=== PATIENT | male | born 1965 | race Caucasian/White ===

== ENCOUNTER 2016-03-20 11:10 | Observation (INO) | payer OTHER ==
[~2016-03-20] VITALS: Ht 170.2 cm; Wt 68.2 kg
[~2016-03-20 11:10] MED LIST: ASPI-130 PO; BUPR150CR PO; LEVEMIR SQ; LIPI20TA PO; LISI-360 PO; METF500 PO; NOVOLOGP2 SQ; NOVORP2 SQ; SERO100T PO
[2016-03-20 11:12] VITALS: BP 139/91; PULSE 95; RESP 17; TEMP 98.1; O2SAT 98
[2016-03-20 12:06] LABS: AUTOMATED NEUTROPHIL # 2.9 TH/MM3 (1.8-7.7); BASOPHIL % 0.8 % (0.0-2.0); EOSINOPHIL # 0.1 TH/MM3 (0-0.4); HEMATOCRIT 36.1 % (39.0-51.0); HEMO FLAGS DIFF FINAL; LYMPH % 38.4 % (9.0-44.0); LYMPHOCYTE # 2.1 TH/MM3 (1.0-4.8); MEAN CELL VOLUME 88.5 FL (80.0-100.0); MEAN CORPUSCULAR HEMOGLOBIN 31.1 PG (27.0-34.0); MEAN CORPUSCULAR HGB CONC 35.1 % (32.0-36.0); MONO % 7.2 % (0.0-8.0); NEUT % 52.6 % (16.0-70.0); PLATELET COUNT 340 TH/MM3 (150-450); RED BLOOD COUNT 4.08 MIL/MM3 (4.50-5.90); RED CELL DISTRIBUTION WIDTH 13.5 % (11.6-17.2); WHITE BLOOD COUNT 5.5 TH/MM3 (4.0-11.0)
--- NOTE | 2016-03-20 12:08 | PD ---
HPI Chief Complaint: Chest Pain Time Seen by Provider: 12:08 Travel History International Travel<30 days: No Contact w/Intl Traveler<30days: No Traveled to known affect area: No History of Present Illness HPI 51-year-old male with history of CAD, CABG, type I DM, HLD, HTN, cocaine abuse, EtOH abuse presents to the ED for evaluation of 7/10 left-sided chest tightness , radiating down the left arm. Onset this morning after waking up. Patient endorses accompanying shortness of breath. He denies diaphoresis, cough, abdominal pain, nausea, vomiting, swelling of the legs. Patient states he took a dose of nitroglycerin which did help to increase his symptoms. He endorses compliance with his insulin but states that his sugars have been "high." States that he "did a line of coke" a few days ago. Also complains of suicidal ideation. He does not have a plan. He is requesting medication. Patient does not currently have a er nurse, followed by Dr. Cardenas [facility] Past Medical History Hx Anticoagulant Therapy: Yes Arthritis: No Asthma: No Autoimmune Disease: No Blood Disorders: No Bipolar Disorder: Yes Anxiety: Yes Depression: Yes Heart Rhythm Problems: No Cancer: No Cardiac Catheterization: Yes Cardiovascular Problems: Yes (Reported hx of HTN, CAD) High Cholesterol: Yes Chemotherapy: Yes Chest Pain: No Congestive Heart Failure: No Cerebrovascular Accident: No Diabetes: Yes Diminished Hearing: No Endocrine: Yes Gastrointestinal Disorders: Yes GERD: Yes Glaucoma: No Genitourinary: No Headaches: No Hepatitis: No Hiatal Hernia: No Hypertension: Yes Immune Disorder: No Implanted Vascular Access Dvce: No Kidney Stones: No Musculoskeletal: No Neurologic: No Psychiatric: Yes (Hx of treatment for depression) Reproductive: No Respiratory: Yes Migraines: No Myocardial Infarction: Yes (2005) Radiation Therapy: No Renal Failure: No Seizures: Yes (seizure 01/10/16, says in coma 11 days) Sickle Cell Disease: No Sleep Apnea: No Thyroid Disease: No Ulcer: No PNEUMOCCOCAL Vaccine (Year): 1 Past Surgical History Abdominal Surgery: No AICD: No Appendectomy: No Arteriovenous Shunt: No Cardiac Surgery: Yes (corobnary by-pass) Cholecystectomy: No Coronary Artery Bypass Graft: Yes Coronary Stent: Yes (X2) Ear Surgery: No Endocrine Surgery: No Eye Surgery: No Genitourinary Surgery: No Gynecologic Surgery: No Insulin Pump: No Joint Replacement: Yes (metal in right wrist) Neurologic Surgery: No Oral Surgery: No Pacemaker: No Thoracic Surgery: No Other Surgery: Yes (CABG,ORTHO RT WRIST, STENT,) Social History Alcohol Use: Yes (socially) Tobacco Use: Yes (0.5 ppd) Substance Use: Yes (cocaine - 2 x week) Allergies-Medications (Allergen,Severity, Reaction): Coded Allergies: *MDRO Multi-Drug Resistant Organism (Verified Adverse Reaction, Unknown, ) MRSA (hand wound) 2010; MRSA PCR Screen POSITIVE 02/11/16 Reported Meds & Prescriptions Reported Meds & Active Scripts Active Lipitor (Atorvastatin Calcium) 20 Mg Tab 20 Mg PO DAILY 15 Days Seroquel (Quetiapine Fumarate) 100 Mg Tab 150 Mg PO QID 15 Days Wellbutrin SR 12 HR (Bupropion HCl) 150 Mg Tab 150 Mg PO DAILY 15 Days Glucophage (Metformin HCl) 500 Mg Tab 250 Mg PO BIDPC 30 Days Novolog Inj (Insulin Aspart) 1,000 Unit/10 Ml Vial 1-9 Units SQ ACHS 30 Days Max dose at bedtime:( )units; sugars less than 70,(0)units; sugars 150-199,(1) unit; sugars 200-249,(3) units; sugars 250-299,(5) units; sugars 300-349,(7) units; sugars greater than 349,(9) units Novolin R Inj (Insulin Human Regular) 1,000 Unit/10 Ml Vial 3 Units SQ TIDAC 30 Days Levemir Inj (Insulin Detemir) 1,000 unit/ 10 ML Vial 35 Units SQ HS 30 Days Lisinopril 10 mg (Lisinopril) 10 Mg Tab 1 Tab PO DAILY 30 Days Reported Aspirin EC Low Dose (Aspirin) 81 Mg Tab 81 Mg PO DAILY Review of Systems Except as stated in HPI: all other systems reviewed are Neg Physical Exam Narrative GENERAL: Well-nourished, well-developed white male in no acute distress. SKIN: Warm and dry. HEAD: Normocephalic. EYES: No scleral icterus. No injection or drainage. NECK: Supple, trachea midline. No JVD or lymphadenopathy. CARDIOVASCULAR: Regular rate and rhythm without murmurs, gallops, or rubs. 2+ DP and radial pulses bilaterally. RESPIRATORY: Breath sounds clear and equal bilaterally. No accessory muscle use. GASTROINTESTINAL: Abdomen soft, non-tender, nondistended. Active bowel sounds. MUSCULOSKELETAL: No cyanosis, or edema. BACK: Nontender without obvious deformity. No CVA tenderness. Data Data Last Documented VS Vital Signs Date Time Temp Pulse Resp B/P Pulse Ox O2 Delivery O2 Flow Rate FiO2 03/20/16 11:12 98.1 95 17 139/91 98 Orders Electrocardiogram (03/20/16 11:22) Complete Blood Count With Diff (03/20/16 11:22) Basic Metabolic Panel (Bmp) (03/20/16 11:22) Ckmb (Isoenzyme) Profile (03/20/16 11:22) Troponin I (03/20/16 11:22) Chest, Single Ap (03/20/16 11:22) Basic Metabolic Panel (Bmp) (03/20/16 12:17) Ckmb (Isoenzyme) Profile (03/20/16 12:17) Magnesium (Mg) (03/20/16 12:17) Prothrombin Time / Inr (Pt) (03/20/16 12:17) Act Partial Throm Time (Ptt) (03/20/16 12:17) Troponin I (03/20/16 12:17) Iv Access Insert/Monitor (03/20/16 12:17) Aspirin Chew (Aspirin Chew) (03/20/16 12:30) Sodium Chloride 0.9% Flush (Ns Flush) (03/20/16 12:30) Nitroglycerin Sl (Nitrostat Sl) (03/20/16 12:30) Sodium Chlorid 0.9% 500 Ml Inj (Ns 500 M (03/20/16 12:30) Blood Glucose (03/20/16 12:17) Drug Screen, Random Urine (03/20/16 12:17) Psych Screen (03/20/16 12:17) Consult Psychiatry (03/20/16 ) Admit Order (Ed Use Only) (03/20/16 15:51) Labs Laboratory Tests Test 03/20/16 03/20/16 11:57 12:35 White Blood Count 5.5 TH/MM3 Red Blood Count 4.08 MIL/MM3 Hemoglobin 12.7 GM/DL Hematocrit 36.1 % Mean Corpuscular Volume 88.5 FL Mean Corpuscular Hemoglobin 31.1 PG Mean Corpuscular Hemoglobin 35.1 % Concent Red Cell Distribution Width 13.5 % Platelet Count 340 TH/MM3 Mean Platelet Volume 6.9 FL Neutrophils (%) (Auto) 52.6 % Lymphocytes (%) (Auto) 38.4 % Monocytes (%) (Auto) 7.2 % Eosinophils (%) (Auto) 1.0 % Basophils (%) (Auto) 0.8 % Neutrophils # (Auto) 2.9 TH/MM3 Lymphocytes # (Auto) 2.1 TH/MM3 Monocytes # (Auto) 0.4 TH/MM3 Eosinophils # (Auto) 0.1 TH/MM3 Basophils # (Auto) 0.0 TH/MM3 CBC Comment DIFF FINAL Differential Comment Sodium Level 137 MEQ/L Potassium Level 4.0 MEQ/L Chloride Level 104 MEQ/L Carbon Dioxide Level 26.4 MEQ/L Anion Gap 7 MEQ/L Blood Urea Nitrogen 8 MG/DL Creatinine 1.02 MG/DL Estimat Glomerular Filtration 77 ML/MIN Rate Random Glucose 272 MG/DL Calcium Level 8.8 MG/DL Total Creatine Kinase 47 U/L Troponin I LESS THAN 0.02 NG/ML Prothrombin Time 10.0 SEC Prothromb Time International 0.9 RATIO Ratio Activated Partial 23.6 SEC Thromboplast Time MDM Medical Decision Making Medical Screen Exam Complete: Yes Emergency Medical Condition: Yes Medical Record Reviewed: Yes (negative stress test 02/14/15) Interpretation(s) EKG rate 88, sinus rhythm. KY interval 142, QRS 9 2, QTC 395 ms. Normal axis. Nonspecific T waves. No ischemic changes. Reviewed by Dr. Zuniga. Differential Diagnosis Angina versus ACS versus suicidal ideation versus electrolyte abnormality versus substance abuse versus hyperglycemia versus GERD versus chest pain versus malingering versus drug seeking behavior versus other Narrative Course 51-year-old male with history of CAD, CABG, type I DM, HLD, HTN, cocaine abuse, EtOH abuse presents to the ED for evaluation of 7/10 left-sided chest tightness , radiating down the left arm. Onset this morning after waking up. Patient endorses accompanying shortness of breath. He denies diaphoresis, cough, abdominal pain, nausea, vomiting, swelling of the legs. Took a single dose of nitroglycerin which improved his symptoms. Also states sugars have been high despite compliance with insulin. Endorses cocaine use, a few days ago. Also complains of suicidal ideation. No definite plan. No er nurse. Followed by Dr. Cardenas. Vitals reviewed. Physical exam reveals a nontoxic-appearing white male in no acute distress. Chest clear auscultation bilaterally. Equal pulses in the distal extremities bilaterally. Abdominal exam is benign. IV was established. Lab work, EKG, CXR was initiated. Psych screen ordered. Aspirin and nitroglycerin 3 ordered. CBC: WBC 5.5. Hemoglobin 12.7. CMP unremarkable. Glucose 272 INR 0.9. Cardiac enzymes negative. EKG rate 88, sinus rhythm, normal intervals, normal axis. Nonspecific T-wave abnormality, no ischemic changes, reviewed by Dr. Zuniga. CXR: No acute disease. UDS: Pending On recheck the patient is sleeping soundly in the stretcher. He arouses easily to voice. Review of the record reveals negative stress test performed by Dr. Vera 02/14/15. I discussed the patient, workup and plan of care with Dr. Oneill. She recommends admission to the medical service for serial cardiac enzymes, EKGs and possible provocative testing. Dr. Zuniga spoke to Dr. Carr who agrees to accept the patient to the medical service. Please see medicine and psych notes for disposition. Diagnosis Primary Impression: Chest pain Qualified Code: R07.9 - Chest pain, unspecified type Additional Impression: Suicidal ideation Ritu Jennings Mar 20, 2016 12:08
[2016-03-20 12:29] LABS: ANION GAP 7 MEQ/L (5-15); BICARBONATE 26.4 MEQ/L (21.0-32.0); BLOOD UREA NITROGEN 8 MG/DL (7-18); CHLORIDE 104 MEQ/L (98-107); GLOMERULAR FILTRATION RATE 77 ML/MIN (>89); SODIUM (NA) 137 MEQ/L (136-145)
[2016-03-20] MEDS ORDERED: SODIUM CHLORID 0.9% 500 ML INJ 500 ML IV ONE (12:30)
[2016-03-20] MEDS ORDERED: ASPIRIN 81 MG CHEW TAB PO ONE (12:30)
[2016-03-20 12:34] LABS: CREATINE KINASE 47 U/L (39-308)
--- NOTE | 2016-03-20 12:37 | RADRPT ---
EXAM DATE/TIME: 03/20/2016 11:58 [facility] COMPARISON: CHEST SINGLE AP, November 07, 2015, 15:04. INDICATIONS : Left side chest pain, left arm pain MEDICAL HISTORY : Diabetes mellitus type I. SURGICAL HISTORY : CABG. ENCOUNTER: Initial ACUITY: 1 day PAIN SCORE: 8/10 LOCATION: Bilateral chest FINDINGS: A single view of the chest demonstrates the lungs to be symmetrically aerated without evidence of mas s, infiltrate or effusion. The cardiomediastinal contours are unremarkable. Osseous structures are intact. CONCLUSION: No acute disease. Thiago Ayers MD FACR on March 20, 2016 at 12:35 Board Certified Radiologist. This report was verified electronically.
[2016-03-20] MEDS: NITROGLYCERIN 0.4 MG SL 25 TABS/BTL SL SCH ×3 (12:40→12:59)
[2016-03-20 13:08] LABS: APTT (PATIENT) 23.6 SEC (24.3-30.1); INTERNATIONAL NORMALIZED RATIO 0.9 RATIO
[2016-03-20] MEDS ORDERED: GLUCAGON 1 MG/ML VIAL OTHER PRN (16:00)
[2016-03-20] MEDS ORDERED: DEXTROSE 50% IN WATER 50 ML VIAL(D50) IV PUSH PRN (16:00)
[2016-03-20] MEDS: INSULIN ASPART SUPPLEMENTAL SCALE SQ SCH ×2 (16:00→21:00)
--- NOTE | 2016-03-20 16:11 | HHI.HP ---
[facility] Service [facility] Primary Care Physician Freda Cardenas MD Admission Diagnosis chest pain, suicidal Diagnoses: (1) Chest pain Diagnosis: Principal Chief Complaint: chest pain Travel History International Travel<30 Days: No Contact w/Intl Traveler <30 Da: No Traveled to Known Affected Are: No History of Present Illness patient is a 51 y/o male with history of CAD- s/p CABG, hypertension, diabetes, chronic smoker, noncompliant with his medications, who presented to ER with chest pain. he says that he woke up this morning with the pain. pain was midsternal with some radiation to the left arm. he had some sob but no nausea or emesis. he has a history of cocaine abuse , the last of which was few days ago. he's also complaining of auditory hallucinations and suicidal ideation. he says that he was hospitalized a month ago for his depression. Review of Systems Constitutional: DENIES: Fever, Weight loss, Chills, Night Sweats Eyes: DENIES: Blurred vision, Diplopia, Vision loss, Double Vision Ears, nose, mouth, throat: DENIES: Tinnitus, Vertigo, Throat pain, Epistaxis Respiratory: COMPLAINS OF: Shortness of breath, DENIES: Apneas, Cough, Snoring , Wheezing, Hemoptysis, Sputum production Cardiovascular: COMPLAINS OF: Chest pain, DENIES: Palpitations, Syncope, Dyspnea on Exertion, PND, Lower Extremity Edema, Orthopnea, Claudication Gastrointestinal: DENIES: Abdominal pain, Black stools, Bloody stools, Constipation, Diarrhea, Nausea, Vomiting, Difficulty Swallowing, Anorexia Genitourinary: DENIES: Urinary frequency, Urgency, Hematuria, Dysuria Musculoskeletal: DENIES: Joint pain, Muscle aches, Stiffness, Joint Swelling Integumentary: DENIES: Rash Neurologic: DENIES: Abnormal gait, Headache, Localized weakness, Paresthesias, Seizures, Speech Problems, Tremor, Poor Balance Psychiatric: COMPLAINS OF: Hallucinations, Suicidal Ideation, DENIES: Anxiety , Confusion, Mood changes, Depression, Agitation, Homicidal Ideation, Delusions Past Family Social History Past Medical History CAD hypertension diabetes depression Past Surgical History CABG Reported Medications Lipitor (Atorvastatin Calcium) 20 Mg Tab 20 Mg PO DAILY 15 Days Seroquel (Quetiapine Fumarate) 100 Mg Tab 150 Mg PO QID 15 Days Wellbutrin SR 12 HR (Bupropion HCl) 150 Mg Tab 150 Mg PO DAILY 15 Days Glucophage (Metformin HCl) 500 Mg Tab 250 Mg PO BIDPC 30 Days Novolog Inj (Insulin Aspart) 1,000 Unit/10 Ml Vial 1-9 Units SQ ACHS 30 Days Max dose at bedtime:( )units; sugars less than 70,(0)units; sugars 150-199,(1) unit; sugars 200-249,(3) units; sugars 250-299,(5) units; sugars 300-349,(7) units; sugars greater than 349,(9) units Novolin R Inj (Insulin Human Regular) 1,000 Unit/10 Ml Vial 3 Units SQ TIDAC 30 Days Levemir Inj (Insulin Detemir) 1,000 unit/ 10 ML Vial 35 Units SQ HS 30 Days Lisinopril 10 mg (Lisinopril) 10 Mg Tab 1 Tab PO DAILY 30 Days Reported Aspirin EC Low Dose (Aspirin) 81 Mg Tab 81 Mg PO DAILY Allergies: Coded Allergies: *MDRO Multi-Drug Resistant Organism (Verified Adverse Reaction, Unknown, ) MRSA (hand wound) 2010; MRSA PCR Screen POSITIVE 02/11/16 Active Ordered Medications Current Medications Aspirin (Aspirin Chew) 243 mg ONCE ONCE PO Last administered on 03/20/16 12: 49; Start 03/20/16 at 12:30; Stop 03/20/16 at 12:31; Status DC IV Flush (NS Flush) 2 ml UNSCH PRN IVF FLUSH AFTER USING IV ACCESS; Start 03/20 at 12:30 Nitroglycerin 0.4 mg 0.4 mg Q5M SL Last administered on 03/20/16 12:59; Start 03/20/16 at 12:30; Stop 03/20/16 at 12:41; Status DC Sodium Chloride (NS 500 ml Inj) 500 ml @ 500 mls/hr ONCE ONCE IV Last administered on 03/20/16 12:49; Start 03/20/16 at 12:30; Stop 03/20/16 at 13:29 ; Status DC Dextrose (D50w (Vial) Inj) 25 ml UNSCH PRN IV PUSH HYPOGLYCEMIA-SEE COMMENTS; Start 03/20/16 at 16:00 Glucagon (Glucagon Inj) 1 mg UNSCH PRN OTHER HYPOGLYCEMIA-SEE COMMENTS; Start 03/20/16 at 16:00 Insulin Aspart (NovoLOG SUPPLEMENTAL SCALE) 1 ACHS SLIDING SCALE SQ ; Start at 16:00 Aspirin (Ecotrin Ec) 81 mg DAILY PO ; Start 03/21/16 at 09:00 Atorvastatin Calcium (Lipitor) 20 mg DAILY PO ; Start 03/21/16 at 09:00 Insulin Detemir (Levemir Inj) 35 units HS SQ ; Start 03/20/16 at 21:00 Lisinopril (Prinivil) 10 mg DAILY PO ; Start 03/21/16 at 09:00 Family History breast cancer in mother. Social History smokes half a pack a day. drinks occasionally. uses cocaine. Physical Exam Vital Signs Vital Signs Date Time Temp Pulse Resp B/P Pulse Ox O2 Delivery O2 Flow Rate FiO2 03/20/16 11:12 98.1 95 17 139/91 98 Physical Exam GENERAL: This is a well-nourished, well-developed patient, in no apparent distress. SKIN: No rashes, ecchymoses or lesions. Cool and dry. HEAD: Atraumatic. Normocephalic. No temporal or scalp tenderness. EYES: Pupils equal round and reactive. Extraocular motions intact. No scleral icterus. No injection or drainage. ENT: Nose without bleeding, purulent drainage or septal hematoma. Throat without erythema, tonsillar hypertrophy or exudate. Uvula midline. Airway patent. NECK: Trachea midline. No JVD or lymphadenopathy. Supple, nontender, no meningeal signs. CARDIOVASCULAR: Regular rate and rhythm without murmurs, gallops, or rubs. RESPIRATORY: Clear to auscultation. Breath sounds equal bilaterally. No wheezes , rales, or rhonchi. GASTROINTESTINAL: Abdomen soft, non-tender, nondistended. No hepato-splenomegaly , or palpable masses. No guarding. MUSCULOSKELETAL: Extremities without clubbing, cyanosis, or edema. No joint tenderness, effusion, or edema noted. No calf tenderness. Negative Homans sign bilaterally. NEUROLOGICAL: Awake and alert. Cranial nerves II through XII intact. Motor and sensory grossly within normal limits. Five out of 5 muscle strength in all muscle groups. Normal speech. Laboratory Laboratory Tests Test 03/20/16 03/20/16 11:57 12:35 White Blood Count 5.5 Red Blood Count 4.08 Hemoglobin 12.7 Hematocrit 36.1 Mean Corpuscular Volume 88.5 Mean Corpuscular Hemoglobin 31.1 Mean Corpuscular Hemoglobin 35.1 Concent Red Cell Distribution Width 13.5 Platelet Count 340 Mean Platelet Volume 6.9 Neutrophils (%) (Auto) 52.6 Lymphocytes (%) (Auto) 38.4 Monocytes (%) (Auto) 7.2 Eosinophils (%) (Auto) 1.0 Basophils (%) (Auto) 0.8 Neutrophils # (Auto) 2.9 Lymphocytes # (Auto) 2.1 Monocytes # (Auto) 0.4 Eosinophils # (Auto) 0.1 Basophils # (Auto) 0.0 CBC Comment DIFF FINAL Differential Comment Sodium Level 137 Potassium Level 4.0 Chloride Level 104 Carbon Dioxide Level 26.4 Anion Gap 7 Blood Urea Nitrogen 8 Creatinine 1.02 Estimat Glomerular Filtration 77 Rate Random Glucose 272 Calcium Level 8.8 Total Creatine Kinase 47 Troponin I LESS THAN 0.02 Prothrombin Time 10.0 Prothromb Time International 0.9 Ratio Activated Partial 23.6 Thromboplast Time Result Diagram: 03/20/16 1157 03/20/16 1157 Imaging Last Impressions Chest X-Ray 03/20/16 1122 Signed Impressions: Service Date/Time: Sunday, March 20, 2016 11:58 - CONCLUSION: No acute disease. Thiago Ayers MD FACR EKG; NSR with no acute ST-T changes Assessment and Plan Assessment and Plan A/P - chest pain with recent cocaine use will continue aspirin- trend the cardiac enzymes of note had a negative stress test about a year ago. -depression with suicidal thoughts and auditory hallucinations- will consult psych -hypertension; resume lisinopril- will monitor -diabetes; accu-check with SSI- resume insulin regimen Discussed Condition With ER physician and the patient. Problem Qualifiers (1) Chest pain: Qualified Code: R07.9 - Chest pain, unspecified type Agueda Wilkes MD Mar 20, 2016 16:11 Agueda Wilkes MD Mar 20, 2016 16:11
[2016-03-20] MEDS ORDERED: NITROGLYCERIN 2% OINT 1 GM PACKET TOPICAL ONE (16:30)
--- NOTE | 2016-03-20 17:29 | PD ---
Data Data Last Documented VS Vital Signs Date Time Temp Pulse Resp B/P Pulse Ox O2 Delivery O2 Flow Rate FiO2 03/20/16 11:12 98.1 95 17 139/91 98 Orders Electrocardiogram (03/20/16 11:22) Complete Blood Count With Diff (03/20/16 11:22) Basic Metabolic Panel (Bmp) (03/20/16 11:22) Ckmb (Isoenzyme) Profile (03/20/16 11:22) Troponin I (03/20/16 11:22) Chest, Single Ap (03/20/16 11:22) Basic Metabolic Panel (Bmp) (03/20/16 12:17) Ckmb (Isoenzyme) Profile (03/20/16 12:17) Magnesium (Mg) (03/20/16 12:17) Prothrombin Time / Inr (Pt) (03/20/16 12:17) Act Partial Throm Time (Ptt) (03/20/16 12:17) Troponin I (03/20/16 12:17) Iv Access Insert/Monitor (03/20/16 12:17) Aspirin Chew (Aspirin Chew) (03/20/16 12:30) Sodium Chloride 0.9% Flush (Ns Flush) (03/20/16 12:30) Nitroglycerin Sl (Nitrostat Sl) (03/20/16 12:30) Sodium Chlorid 0.9% 500 Ml Inj (Ns 500 M (03/20/16 12:30) Blood Glucose (03/20/16 12:17) Drug Screen, Random Urine (03/20/16 12:17) Psych Screen (03/20/16 12:17) Consult Psychiatry (03/20/16 ) Admit Order (Ed Use Only) (03/20/16 15:51) Labs Laboratory Tests Test 03/20/16 03/20/16 11:57 12:35 White Blood Count 5.5 TH/MM3 Red Blood Count 4.08 MIL/MM3 Hemoglobin 12.7 GM/DL Hematocrit 36.1 % Mean Corpuscular Volume 88.5 FL Mean Corpuscular Hemoglobin 31.1 PG Mean Corpuscular Hemoglobin 35.1 % Concent Red Cell Distribution Width 13.5 % Platelet Count 340 TH/MM3 Mean Platelet Volume 6.9 FL Neutrophils (%) (Auto) 52.6 % Lymphocytes (%) (Auto) 38.4 % Monocytes (%) (Auto) 7.2 % Eosinophils (%) (Auto) 1.0 % Basophils (%) (Auto) 0.8 % Neutrophils # (Auto) 2.9 TH/MM3 Lymphocytes # (Auto) 2.1 TH/MM3 Monocytes # (Auto) 0.4 TH/MM3 Eosinophils # (Auto) 0.1 TH/MM3 Basophils # (Auto) 0.0 TH/MM3 CBC Comment DIFF FINAL Differential Comment Sodium Level 137 MEQ/L Potassium Level 4.0 MEQ/L Chloride Level 104 MEQ/L Carbon Dioxide Level 26.4 MEQ/L Anion Gap 7 MEQ/L Blood Urea Nitrogen 8 MG/DL Creatinine 1.02 MG/DL Estimat Glomerular Filtration 77 ML/MIN Rate Random Glucose 272 MG/DL Calcium Level 8.8 MG/DL Total Creatine Kinase 47 U/L Troponin I LESS THAN 0.02 NG/ML Prothrombin Time 10.0 SEC Prothromb Time International 0.9 RATIO Ratio Activated Partial 23.6 SEC Thromboplast Time MDM Supervised Visit with ARTHUR: Yes Narrative Course I, Dr. Zuniga, have reviewed the advance practice practioner's documentation and am in agreement, met with the patient face to face, made the diagnosis, and the medical decision making was done by me. *My assessment and Findings: 51-year-old male with history of CAD status post CABG, IDDM, HTN, HLD here with moderate to severe left-sided chest pain radiating down the left arm since waking this morning. He took nitroglycerin at home with some mild improvement. Regular rate and rhythm, no reproducible tenderness to palpation of the chest wall on exam. Incidentally patient also notes that he feels depressed, and has suicidal ideation. Differential includes ACS, musculoskeletal, atypical chest pain, less likely PE or dissection , GERD. Concern for depression, suicidal ideation, malingering. Patient's EKG and laboratory workup were unremarkable. His last provocative testing was approximately 14 months ago. Patient will be admitted for serial enzymes, EKG, provocative testing and psychiatry consultation. Diagnosis Primary Impression: Chest pain Qualified Code: R07.9 - Chest pain, unspecified type Additional Impression: Suicidal ideation Marija Zuniga MD Mar 20, 2016 17:29
[2016-03-20 18:44] VITALS: BP 155/77; PULSE 66; RESP 15; O2SAT 99
[2016-03-20 20:40] VITALS: BP 161/88; PULSE 81; RESP 18; TEMP 98.7; O2SAT 99
[2016-03-20] MEDS: INSULIN DETEMIR 100 UNITS/ML VIAL SQ SCH (21:00)
--- NOTE | 2016-03-20 23:07 | EKG ---
Date Performed: 03/20/2016 Time Performed: 11:35:35 PTAGE: 51 years EKG: Sinus rhythm NONSPECIFIC T-WAVE ABNORMALITY ABNORMAL ECG PREVIOUS TRACING : 11/08/2015 03.27 DOCTOR: Magdy Padgett Interpretating Date/Time 03/20/2016 22:56:41
[2016-03-21] VITALS: BP 152/79; PULSE 76; RESP 20; TEMP 98.1; O2SAT 97
[2016-03-21 04:00] VITALS: BP 153/80; PULSE 69; RESP 18; TEMP 98.4; O2SAT 99
[2016-03-21] MEDS ORDERED: ONDANSETRON HCL 4 MG/2 ML VIAL IV PRN (05:15)
[2016-03-21] MEDS: MORPHINE SULFATE 4 MG/ML INJ IV PUSH PRN ×4 (05:31→22:01)
[2016-03-21] MEDS: INSULIN ASPART SUPPLEMENTAL SCALE SQ SCH ×4 (07:00→20:58)
[2016-03-21 08:00] VITALS: BP 140/92; PULSE 70; RESP 18; TEMP 97.2; O2SAT 98
--- NOTE | 2016-03-21 08:28 | HHI.PR ---
Subjective Remarks in no distress. says that had some chest pain last night which has resolved. still with suicidal thoughts and auditory hallucinations. Objective Vitals Vital Signs Date Time Temp Pulse Resp B/P Pulse Ox O2 Delivery O2 Flow Rate FiO2 03/21/16 08:00 97.2 70 18 140/92 98 03/21/16 05:45 14 03/21/16 04:00 98.4 69 18 153/80 99 03/21/16 00:00 98.1 76 20 152/79 97 03/20/16 20:40 98.7 81 18 161/88 99 03/20/16 18:44 70 03/20/16 18:44 66 15 155/77 99 Room Air 03/20/16 11:12 98.1 95 17 139/91 98 Result Diagram: 03/20/16 1157 03/20/16 1157 Imaging Last Impressions Chest X-Ray 03/20/16 1122 Signed Impressions: Service Date/Time: Sunday, March 20, 2016 11:58 - CONCLUSION: No acute disease. Thiago Ayers MD FACR Objective Remarks GENERAL: This is a well-nourished, well-developed patient, in no apparent distress. CARDIOVASCULAR: Regular rate and regular rhythm without murmurs, gallops, or rubs. RESPIRATORY: Clear to auscultation. Breath sounds equal bilaterally. No wheezes , rales, or rhonchi. GASTROINTESTINAL: Abdomen soft, non-tender, nondistended. Normal, active bowel sounds MUSCULOSKELETAL: Extremities without clubbing, cyanosis, or edema. NEURO: Alert & Oriented x4 to person, place, time, situation. Moves all ext x4 Procedures none Medications and IVs Current Medications Aspirin (Aspirin Chew) 243 mg ONCE ONCE PO Last administered on 03/20/16 12: 49; Start 03/20/16 at 12:30; Stop 03/20/16 at 12:31; Status DC IV Flush (NS Flush) 2 ml UNSCH PRN IVF FLUSH AFTER USING IV ACCESS; Start 03/20 at 12:30 Nitroglycerin 0.4 mg 0.4 mg Q5M SL Last administered on 03/20/16 12:59; Start 03/20/16 at 12:30; Stop 03/20/16 at 12:41; Status DC Sodium Chloride (NS 500 ml Inj) 500 ml @ 500 mls/hr ONCE ONCE IV Last administered on 03/20/16 12:49; Start 03/20/16 at 12:30; Stop 03/20/16 at 13:29 ; Status DC Dextrose (D50w (Vial) Inj) 25 ml UNSCH PRN IV PUSH HYPOGLYCEMIA-SEE COMMENTS; Start 03/20/16 at 16:00 Glucagon (Glucagon Inj) 1 mg UNSCH PRN OTHER HYPOGLYCEMIA-SEE COMMENTS; Start 03/20/16 at 16:00 Insulin Aspart (NovoLOG SUPPLEMENTAL SCALE) 1 ACHS SLIDING SCALE SQ Last administered on 03/20/16 21:00; Start 03/20/16 at 16:00 Aspirin (Ecotrin Ec) 81 mg DAILY PO ; Start 03/21/16 at 09:00 Atorvastatin Calcium (Lipitor) 20 mg DAILY PO ; Start 03/21/16 at 09:00 Insulin Detemir (Levemir Inj) 35 units HS SQ Last administered on 03/20/16 21: 00; Start 03/20/16 at 21:00 Lisinopril (Prinivil) 10 mg DAILY PO ; Start 03/21/16 at 09:00 Nitroglycerin (Nitroglycerin 2% Oint) 0.5 inch ONCE ONCE TOPICAL Last administered on 03/20/16 16:30; Start 03/20/16 at 16:30; Stop 03/20/16 at 16:57 ; Status DC Morphine Sulfate (Morphine Inj) 2 mg Q4HR PRN IV PUSH CHEST PAIN Last administered on 03/21/16 05:31; Start 03/20/16 at 16:30 Ondansetron HCl (Zofran Inj) 4 mg Q6H PRN IV NAUSEA OR VOMITING Last administered on 03/21/16 05:32; Start 03/21/16 at 05:15 A/P Assessment and Plan - chest pain with recent cocaine use will continue aspirin- cardiac enzymes negative. will repeat the stress test today. ( had a negative stress test in 2014). -depression with suicidal thoughts and auditory hallucinations- will consult psych- sitter at the bedside. -hypertension; resumed lisinopril- will monitor -diabetes; accu-check with SSI- resumed insulin regimen Agueda Wilkes MD Mar 21, 2016 08:28
[2016-03-21] MEDS ORDERED: SODIUM CHLORID 0.9% 500 ML INJ 500 ML IV ONE (08:30)
[2016-03-21] MEDS: ATORVASTATIN 20 MG TAB PO SCH (09:23)
[2016-03-21] MEDS: LISINOPRIL 10 MG TAB PO SCH (09:23)
[2016-03-21] MEDS: ASPIRIN EC 81 MG TABEC PO SCH (09:23)
[2016-03-21 11:46] VITALS: BP 160/80; PULSE 62; RESP 18; TEMP 97.9; O2SAT 96
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
[2016-03-21] MEDS ORDERED: REGADENOSON INJ 0.4 MG/5 ML SYR ONE (14:34)
[2016-03-21 16:18] VITALS: BP 148/78; PULSE 70; RESP 18; TEMP 97.8; O2SAT 95
--- NOTE | 2016-03-21 16:21 | RADRPT ---
EXAM DATE/TIME: 03/21/2016 14:07 [facility] COMPARISON: MYOCARDIAL PERF PHARM SPECT, GATED W/EF, February 14, 2015, 8:36. INDICATIONS : Midsternal chest pain radiating to left arm presents with shortness of breath. DOSE: 8.5 mCi Tc99m Myoview at stress. 28.7 mCi Tc99m Myoview at rest. 0.4 mg Lexiscan STRESS SYMPTOMS: Shortness of breath. EJECTION FRACTION: 44% MEDICAL HISTORY : Hypertension. Myocardial infarction. Hypercholesterolemia. Coronary artery disease, COPD and diabetes mellitus. SURGICAL HISTORY : CABG Coronary artery stent. Right wrist. ENCOUNTER: Initial ACUITY: 2 days PAIN SCALE: 7/10 LOCATION: Midsternal chest TECHNIQUE: The patient underwent pharmacologic stress with infusion of prescribed dose. Continuous ECG tracing was monitored during stress. Gated SPECT imaging was performed after stress and conventional SPECT i maging was performed at rest. The examination was performed on a SPECT/CT scanner, both attenuation and non-corrected datasets were reviewed. FINDINGS: DISTRIBUTION: The maximum perfused segment at stress is in the inferior wall. PERFUSION STUDY: There is decreased perfusion in the upper septum and anterior wall at the mid ventricle on stress kandi ges compared to the rest images in your of 20%. GATED STUDY: There is intact wall motion and thickening without hypokinetic or dyskinetic segments. CONCLUSION: 1. Possible mild ischemia in the LAD territory at the upper septum and anterior wall of the mid ventr icle. 2. Mildly reduced ejection fraction of 44%. RISK CATEGORY: Intermediate (1-3% Annual Mortality Rate) Dhruv Orlando MD on March 21, 2016 at 16:15 Board Certified Radiologist. This report was verified electronically.
[2016-03-21 20:22] VITALS: BP 154/86; PULSE 72; RESP 20; TEMP 98.1; O2SAT 99
[2016-03-21] MEDS: INSULIN DETEMIR 100 UNITS/ML VIAL SQ SCH (20:58)
[2016-03-22 00:36] VITALS: BP 143/74; PULSE 68; RESP 20; TEMP 97.6; O2SAT 99
[2016-03-22 04:58] VITALS: BP 140/70; PULSE 68; RESP 20; TEMP 98.2; O2SAT 97
[2016-03-22] MEDS: INSULIN ASPART SUPPLEMENTAL SCALE SQ SCH ×4 (06:00→21:46)
--- NOTE | 2016-03-22 07:29 | HHI.PR ---
Subjective Remarks resting comfortably with no distress. has on and off chest pain. still with suicidal thoughts. sitter at the bedside. Objective Vitals Vital Signs Date Time Temp Pulse Resp B/P Pulse Ox O2 Delivery O2 Flow Rate FiO2 03/22/16 04:58 98.2 68 20 140/70 97 03/22/16 00:36 97.6 68 20 143/74 99 03/21/16 20:22 98.1 72 20 154/86 99 03/21/16 16:18 97.8 70 18 148/78 95 03/21/16 11:46 97.9 62 18 160/80 96 03/21/16 08:00 97.2 70 18 140/92 98 I/O 03/21/16 03/21/16 03/21/16 03/22/16 03/22/16 03/22/16 07:00 15:00 23:00 07:00 15:00 23:00 Intake Total 700 ml Balance 700 ml Intake Oral 400 ml IV Total 300 ml # Voids 5 Result Diagram: 03/20/16 1157 03/20/16 1157 Imaging Last Impressions Myocardial Perfusion Scan Nuc Med 03/21/16 0000 Signed Impressions: Service Date/Time: Monday, March 21, 2016 14:07 - CONCLUSION: 1. Possible mild ischemia in the LAD territory at the upper septum and anterior wall of the mid ventricle. 2. Mildly reduced ejection fraction of 44%%. RISK CATEGORY: Intermediate (1-3%% Annual Mortality Rate) Dhruv Orlando MD Chest X-Ray 03/20/16 1122 Signed Impressions: Service Date/Time: Sunday, March 20, 2016 11:58 - CONCLUSION: No acute disease. Thiago Ayers MD FACR Objective Remarks GENERAL: This is a well-nourished, well-developed patient, in no apparent distress. CARDIOVASCULAR: Regular rate and regular rhythm without murmurs, gallops, or rubs. RESPIRATORY: Clear to auscultation. Breath sounds equal bilaterally. No wheezes , rales, or rhonchi. GASTROINTESTINAL: Abdomen soft, non-tender, nondistended. Normal, active bowel sounds MUSCULOSKELETAL: Extremities without clubbing, cyanosis, or edema. NEURO: Alert & Oriented x4 to person, place, time, situation. Moves all ext x4 Procedures none Medications and IVs Current Medications Aspirin (Aspirin Chew) 243 mg ONCE ONCE PO Last administered on 03/20/16 12: 49; Start 03/20/16 at 12:30; Stop 03/20/16 at 12:31; Status DC IV Flush (NS Flush) 2 ml UNSCH PRN IVF FLUSH AFTER USING IV ACCESS; Start 03/20 at 12:30 Nitroglycerin 0.4 mg 0.4 mg Q5M SL Last administered on 03/20/16 12:59; Start 03/20/16 at 12:30; Stop 03/20/16 at 12:41; Status DC Sodium Chloride (NS 500 ml Inj) 500 ml @ 500 mls/hr ONCE ONCE IV Last administered on 03/20/16 12:49; Start 03/20/16 at 12:30; Stop 03/20/16 at 13:29 ; Status DC Dextrose (D50w (Vial) Inj) 25 ml UNSCH PRN IV PUSH HYPOGLYCEMIA-SEE COMMENTS; Start 03/20/16 at 16:00 Glucagon (Glucagon Inj) 1 mg UNSCH PRN OTHER HYPOGLYCEMIA-SEE COMMENTS; Start 03/20/16 at 16:00 Insulin Aspart (NovoLOG SUPPLEMENTAL SCALE) 1 ACHS SLIDING SCALE SQ Last administered on 03/21/16 18:32; Start 03/20/16 at 16:00 Aspirin (Ecotrin Ec) 81 mg DAILY PO Last administered on 03/21/16 09:23; Start 03/21/16 at 09:00 Atorvastatin Calcium (Lipitor) 20 mg DAILY PO Last administered on 03/21/16 09 :23; Start 03/21/16 at 09:00 Insulin Detemir (Levemir Inj) 35 units HS SQ Last administered on 03/21/16 20: 58; Start 03/20/16 at 21:00 Lisinopril (Prinivil) 10 mg DAILY PO Last administered on 03/21/16 09:23; Start 03/21/16 at 09:00 Nitroglycerin (Nitroglycerin 2% Oint) 0.5 inch ONCE ONCE TOPICAL Last administered on 03/20/16 16:30; Start 03/20/16 at 16:30; Stop 03/20/16 at 16:57 ; Status DC Morphine Sulfate (Morphine Inj) 2 mg Q4HR PRN IV PUSH CHEST PAIN Last administered on 03/21/16 22:01; Start 03/20/16 at 16:30 Ondansetron HCl 4 mg 4 mg Q6H PRN IV NAUSEA OR VOMITING Last administered on 05:32; Start 03/21/16 at 05:15 Sodium Chloride (NS 500 ml Inj) 500 ml @ 50 mls/hr Q10H ONCE IV Last administered on 03/21/16 09:25; Start 03/21/16 at 08:30; Stop 03/21/16 at 18:29 ; Status DC Regadenoson (Lexiscan Inj) 0.4 mg STK-MED ONCE .ROUTE Last administered on 03/21 14:34; Start 03/21/16 at 14:34; Stop 03/21/16 at 14:35; Status DC A/P Assessment and Plan - chest pain with recent cocaine use will continue aspirin ans statin- cardiac enzymes negative. stress test with possible ischemia in LAD territory- will consult cardiology -depression with suicidal thoughts and auditory hallucinations- psych consult appreciated.sitter at the bedside. for admission to the psych unit- pending cardiology evaluation -hypertension; resumed lisinopril- will monitor -diabetes; accu-check with SSI- resumed insulin regimen Discharge Planning dc to psych when cleared by cardiology. Agueda Wilkes MD Mar 22, 2016 07:29
[2016-03-22 07:43] VITALS: BP 153/89; PULSE 74; RESP 20; TEMP 96.9; O2SAT 97
[2016-03-22] MEDS: ATORVASTATIN 20 MG TAB PO SCH (08:33)
[2016-03-22] MEDS: LISINOPRIL 10 MG TAB PO SCH (08:33)
[2016-03-22] MEDS: ASPIRIN EC 81 MG TABEC PO SCH (08:34)
[2016-03-22] MEDS: MORPHINE SULFATE 4 MG/ML INJ IV PUSH PRN ×4 (08:34→21:49)
[2016-03-22 11:13] VITALS: BP 163/95; PULSE 79; RESP 20; TEMP 97.3; O2SAT 96
[2016-03-22 15:35] VITALS: BP 138/75; PULSE 70; RESP 18; TEMP 98.1; O2SAT 97
[2016-03-22 20:15] VITALS: BP 149/80; PULSE 80; RESP 20; TEMP 97.8; O2SAT 96
[2016-03-22] MEDS: INSULIN DETEMIR 100 UNITS/ML VIAL SQ SCH (21:47)
[2016-03-23] VITALS (7 sets, daily range): BP systolic 136–159; BP diastolic 72–88; PULSE 65–78; RESP 18–20; TEMP 96.3–98.4; O2SAT 94–98
[2016-03-23] MEDS: INSULIN ASPART SUPPLEMENTAL SCALE SQ SCH ×4 (05:54→21:00)
--- NOTE | 2016-03-23 07:31 | HHI.PR ---
Subjective Remarks resting comfortably with no distress. has on and off suicidal thoughts. sitter at the bedside. Objective Vitals Vital Signs Date Time Temp Pulse Resp B/P Pulse Ox O2 Delivery O2 Flow Rate FiO2 03/23/16 04:40 98.4 72 20 136/72 97 03/23/16 01:34 97.8 74 20 141/80 98 03/22/16 22:00 21 03/22/16 20:15 97.8 80 20 149/80 96 03/22/16 15:35 98.1 70 18 138/75 97 03/22/16 11:13 97.3 79 20 163/95 96 03/22/16 07:43 96.9 74 20 153/89 97 Result Diagram: 03/20/16 1157 03/20/16 1157 Imaging Last Impressions Myocardial Perfusion Scan Nuc Med 03/21/16 0000 Signed Impressions: Service Date/Time: Monday, March 21, 2016 14:07 - CONCLUSION: 1. Possible mild ischemia in the LAD territory at the upper septum and anterior wall of the mid ventricle. 2. Mildly reduced ejection fraction of 44%%. RISK CATEGORY: Intermediate (1-3%% Annual Mortality Rate) Dhruv Orlando MD Chest X-Ray 03/20/16 1122 Signed Impressions: Service Date/Time: Sunday, March 20, 2016 11:58 - CONCLUSION: No acute disease. Thiago Ayers MD FACR Objective Remarks GENERAL: This is a well-nourished, well-developed patient, in no apparent distress. CARDIOVASCULAR: Regular rate and regular rhythm without murmurs, gallops, or rubs. RESPIRATORY: Clear to auscultation. Breath sounds equal bilaterally. No wheezes , rales, or rhonchi. GASTROINTESTINAL: Abdomen soft, non-tender, nondistended. Normal, active bowel sounds MUSCULOSKELETAL: Extremities without clubbing, cyanosis, or edema. NEURO: Alert & Oriented x4 to person, place, time, situation. Moves all ext x4 Procedures none Medications and IVs Current Medications Aspirin (Aspirin Chew) 243 mg ONCE ONCE PO Last administered on 03/20/16t 12: 49; Start 03/20/16 at 12:30; Stop 03/20/16 at 12:31; Status DC IV Flush (NS Flush) 2 ml UNSCH PRN IVF FLUSH AFTER USING IV ACCESS; Start 03/20 at 12:30 Nitroglycerin 0.4 mg 0.4 mg Q5M SL Last administered on 03/20/16 12:59; Start 03/20/16 at 12:30; Stop 03/20/16 at 12:41; Status DC Sodium Chloride (NS 500 ml Inj) 500 ml @ 500 mls/hr ONCE ONCE IV Last administered on 03/20/16 12:49; Start 03/20/16 at 12:30; Stop 03/20/16 at 13:29 ; Status DC Dextrose (D50w (Vial) Inj) 25 ml UNSCH PRN IV PUSH HYPOGLYCEMIA-SEE COMMENTS; Start 03/20/16 at 16:00 Glucagon (Glucagon Inj) 1 mg UNSCH PRN OTHER HYPOGLYCEMIA-SEE COMMENTS; Start 03/20/16 at 16:00 Insulin Aspart (NovoLOG SUPPLEMENTAL SCALE) 1 ACHS SLIDING SCALE SQ Last administered on 03/22/16 21:46; Start 03/20/16 at 16:00 Aspirin (Ecotrin Ec) 81 mg DAILY PO Last administered on 03/22/16 08:34; Start 03/21/16 at 09:00 Atorvastatin Calcium (Lipitor) 20 mg DAILY PO Last administered on 03/22/16 08 :33; Start 03/21/16 at 09:00 Insulin Detemir (Levemir Inj) 35 units HS SQ Last administered on 03/22/16 21: 47; Start 03/20/16 at 21:00 Lisinopril (Prinivil) 10 mg DAILY PO Last administered on 03/22/16 08:33; Start 03/21/16 at 09:00 Nitroglycerin (Nitroglycerin 2% Oint) 0.5 inch ONCE ONCE TOPICAL Last administered on 03/20/16 16:30; Start 03/20/16 at 16:30; Stop 03/20/16 at 16:57 ; Status DC Morphine Sulfate (Morphine Inj) 2 mg Q4HR PRN IV PUSH CHEST PAIN Last administered on 03/22/16 21:49; Start 03/20/16 at 16:30 Ondansetron HCl 4 mg 4 mg Q6H PRN IV NAUSEA OR VOMITING Last administered on 05:32; Start 03/21/16 at 05:15 Sodium Chloride (NS 500 ml Inj) 500 ml @ 50 mls/hr Q10H ONCE IV Last administered on 03/21/16 09:25; Start 03/21/16 at 08:30; Stop 03/21/16 at 18:29 ; Status DC Regadenoson (Lexiscan Inj) 0.4 mg STK-MED ONCE .ROUTE Last administered on 03/21 14:34; Start 03/21/16 at 14:34; Stop 03/21/16 at 14:35; Status DC Amlodipine Besylate (Norvasc) 5 mg DAILY PO ; Start 03/23/16 at 09:00 A/P Assessment and Plan - chest pain with recent cocaine use/ noncompliant with meds will continue aspirin and statin- cardiac enzymes negative. stress test with possible ischemia in LAD territory- consulted cardiology; recommended medical treatment. -depression with suicidal thoughts and auditory hallucinations- psych consult appreciated.sitter at the bedside. for admission to the psych unit- -hypertension; resumed lisinopril-norvasc was added- will monitor -diabetes; accu-check with SSI- resumed insulin regimen Discharge Planning patient is medically clear for discharge. dc to psych likely today. f/u; pcp and psych. see med list. d/w the patient. Agueda Wilkes MD Mar 23, 2016 07:31
[2016-03-23] MEDS ORDERED: AMLO5 PO (07:33)
--- NOTE | 2016-03-23 07:34 | HHI.DCPOC ---
Discharge Care Plan Diagnosis: (1) Chest pain Your Health Problems Are: Chest Pain Additional Problems chest pain Goals to Promote Your Health * To prevent worsening of your condition and complications * To maintain your health at the optimal level Directions to Meet Your Goals Take your medications as prescribed Follow your dietary instruction Follow activity as directed Keep your appointments as scheduled Take your immunizations and boosters as scheduled If your symptoms worsen call your PCP, if no PCP go to Urgent Care Center or Emergency Room Smoking is Dangerous to Your Health. Avoid second hand smoke Call the 24-hour hour crisis hotline for domestic abuse at Agueda Wilkes MD Mar 23, 2016 07:34
--- NOTE | 2016-03-23 07:46 | MB ---
cc: ROMULO HAYES MD, VINCENT G. DO DATE OF CONSULTATION: 03/22/2016 REASON FOR CONSULTATION Abnormal stress test. HISTORY OF PRESENT ILLNESS Axel Small is a 51-year-old male who presented to [facility] on March 20, 2016 with a complaint of chest pain. He states he woke up that morning with pain. The pain was in the midsternal area and had some radiation to his left arm. It was similar to pain that he had in the past when he had undergone previous stress testing and cardiac catheterization here at [facility]. He admits to using cocaine a few days before presenting to the emergency room. He has also been having auditory hallucinations and suicidal ideation. PAST MEDICAL HISTORY 1. Coronary artery disease. 2. Hypertension 3. Diabetes. 4. Depression. PAST SURGICAL HISTORY Coronary artery bypass grafting. ALLERGIES No known drug allergies. MEDICATIONS 1. Lisinopril 10 mg daily. 2. Wellbutrin 150 mg daily. 3. Seroquel 150 mg q.i.d. 4. Metformin 250 mg b.i.d. 5. Lipitor 20 mg daily. 6. NovoLog sliding scale. 7. Levemir 35 units every night. 8. Novolin 3 units three times a day. 9. Aspirin 81 mg daily. FAMILY HISTORY Breast cancer in his mother. SOCIAL HISTORY The patient smokes a half pack of cigarettes daily. He drinks occasionally. He continues to use cocaine since 2002. REVIEW OF SYSTEMS 14 systems were reviewed including osteopathic. Pertinent positives and negatives as above, otherwise negative. PHYSICAL EXAMINATION VITAL SIGNS: Temperature 98.1, heart rate 70, blood pressure 138/75, respirations 18. Pulse ox 97% on room air. GENERAL: In general the patient appears well in no acute distress, alert, awake and oriented x3. HEENT: Extraocular muscles intact. Mucous membranes moist. NECK: Supple. No JVD at 45 degrees. No carotid bruits heard bilaterally. Carotid upstroke is brisk in nature. HEART: Regular rate and rhythm. Positive first and second heart sounds without any murmurs, gallops or rubs. PMI is nondisplaced. LUNGS: Clear to auscultation bilaterally. No wheezes, rales or rhonchi. ABDOMEN: Soft, nontender, nondistended. No organomegaly noted. EXTREMITIES: No clubbing, cyanosis or edema. Femoral and distal pulses intact bilaterally. NEUROLOGIC: No focal deficits. MUSCULOSKELETAL: Osteopathically no kyphoscoliosis, lordosis or paraspinal tender points. LABORATORY FINDINGS Hemoglobin 12.7, hematocrit 36.1, platelets 340. Potassium 4.0, BUN 8, creatinine 1.02. Troponin negative x3.. UDS was not done but the patient admits to using cocaine a few days before coming to the hospital. Looking back he has had a positive cocaine every time that it has been checked except for one time in 2003. IMPRESSION 1. Atypical chest pain. 2. Abnormal stress test with possible mild ischemia in the LAD territory at the upper septum and anterior wall of the mid ventricle, read as intermediate risk. 3. History of coronary artery disease with coronary artery bypass grafting. 4. Tobacco abuse. 5. Consistent cocaine abuse going back to 2002. 6. Suicidal ideation. 7. History of noncompliance with medication. RECOMMENDATIONS 1. Axel's chest pain appears atypical for coronary artery insufficiency. His EKG shows no ischemia. He has no myocardial necrosis by lab work. He is hemodynamically and electrically stable. 2. His stress test is read as possible ischemia of the anterior wall which makes it an intermediate risk stress test. 3. The patient has a known history of noncompliance with medication. My other concern is his continual use of cocaine as well as multiple issues with suicidal ideation. 4. With all these underlying issues I feel that my concern would be noncompliance with his medications if he underwent cardiac catheterization and needed stenting. I feel his best option is medical management. I explained that my suggestion would be medical management due to the above issues and he understands and agrees. We will continue medical management for his coronary artery disease. Thank you for allowing me to see Axel Small. If there are any questions, please do not hesitate to call. Leonidas Ramirez DO VGP/ROBBIE /8:01 PM /7:31 AM MTDConor
[2016-03-23] MEDS: ASPIRIN EC 81 MG TABEC PO SCH (08:31)
[2016-03-23] MEDS: ATORVASTATIN 20 MG TAB PO SCH (08:31)
[2016-03-23] MEDS: SODIUM CHLORIDE 0.9% FLUSH 5 ML FLUSH IVF PRN ×2 (08:31→16:38)
[2016-03-23] MEDS: MORPHINE SULFATE 4 MG/ML INJ IV PUSH PRN ×4 (08:31→21:19)
[2016-03-23] MEDS: amLODIPine BESYLATE 5 MG TAB PO SCH (08:47)
[2016-03-23] MEDS: LISINOPRIL 10 MG TAB PO SCH (08:47)
--- NOTE | 2016-03-23 09:33 | HHI.DS ---
Discharge Summary Admission Date Mar 20, 2016 at 15:52 Discharge Date: Mar 23, 2016 Admitting Diagnosis chest pain, suicidal (1) Chest pain ICD Code: R07.9 Diagnosis: Principal Procedures none Brief History - From Admission patient is a 51 y/o male with history of CAD- s/p CABG, hypertension, diabetes, chronic smoker, noncompliant with his medications, who presented to ER with chest pain. he says that he woke up this morning with the pain. pain was midsternal with some radiation to the left arm. he had some sob but no nausea or emesis. he has a history of cocaine abuse , the last of which was few days ago. he's also complaining of auditory hallucinations and suicidal ideation. he says that he was hospitalized a month ago for his depression. CBC/BMP: 03/20/16 1157 03/20/16 1157 Significant Findings Laboratory Tests Test 03/20/16 03/20/16 03/20/16 03/20/16 11:57 12:35 17:15 23:20 Red Blood Count 4.08 MIL/MM3 (4.50-5.90) Hemoglobin 12.7 GM/DL (13.0-17.0) Hematocrit 36.1 % (39.0-51.0) Mean Platelet Volume 6.9 FL (7.0-11.0) Estimat Glomerular Filtration 77 ML/MIN (>89) Rate Random Glucose 272 MG/DL (74-106) Troponin I LESS THAN 0.02 LESS THAN 0.02 LESS THAN 0.02 NG/ML NG/ML NG/ML (0.02-0.05) (0.02-0.05) (0.02-0.05) Activated Partial 23.6 SEC Thromboplast Time (24.3-30.1) Imaging Last Impressions Myocardial Perfusion Scan Nuc Med 03/21/16 0000 Signed Impressions: Service Date/Time: Monday, March 21, 2016 14:07 - CONCLUSION: 1. Possible mild ischemia in the LAD territory at the upper septum and anterior wall of the mid ventricle. 2. Mildly reduced ejection fraction of 44%%. RISK CATEGORY: Intermediate (1-3%% Annual Mortality Rate) Dhruv Orlando MD Chest X-Ray 03/20/16 1122 Signed Impressions: Service Date/Time: Sunday, March 20, 2016 11:58 - CONCLUSION: No acute disease. Thiago Ayers MD FACR PE at Discharge GENERAL: This is a well-nourished, well-developed patient, in no apparent distress. CARDIOVASCULAR: Regular rate and regular rhythm without murmurs, gallops, or rubs. RESPIRATORY: Clear to auscultation. Breath sounds equal bilaterally. No wheezes , rales, or rhonchi. GASTROINTESTINAL: Abdomen soft, non-tender, nondistended. Normal, active bowel sounds MUSCULOSKELETAL: Extremities without clubbing, cyanosis, or edema. NEURO: Alert & Oriented x4 to person, place, time, situation. Moves all ext x4 Hospital Course - chest pain with recent cocaine use will continue aspirin and statin- cardiac enzymes negative. stress test with possible ischemia in LAD territory- consulted cardiology; recommended medical treatment. -depression with suicidal thoughts and auditory hallucinations- psych consult appreciated.sitter at the bedside. for admission to the psych unit- -hypertension; resumed lisinopril-norvasc was added- will monitor -diabetes; accu-check with SSI- resumed insulin regimen Pt Condition on Discharge: Stable Discharge Disposition: Discharge Home Discharge Time: <= 30 minutes Discharge Instructions DIET: Follow Instructions for: Heart Healthy Diet, Diabetic Diet Activities you can perform: Regular-No Restrictions Follow up Referrals: PCP Follow-up Psychiatry Adult New Medications: Amlodipine (Norvasc) 5 Mg Tab 5 MG PO DAILY hypertension Days 30 Ref 0 TAB Continued Medications: Aspirin (Aspirin EC Low Dose) 81 Mg Tab 81 MG PO DAILY #31 Atorvastatin (Lipitor) 20 Mg Tab 20 MG PO DAILY Cholesterol Management Days 15 Ref 1 TAB Bupropion HCl ER 12 HR (Wellbutrin SR 12 HR) 150 Mg Tab 150 MG PO DAILY Mental Health Days 15 Ref 1 TAB Insulin Aspart Inj (Novolog Inj) 1,000 Unit/10 Ml Vial 1-9 UNITS SQ ACHS Max dose at bedtime:( )units; sugars less than 70,(0)units; sugars 150-199,(1) unit; sugars 200-249,(3) units; sugars 250-299,(5) units; sugars 300-349,(7) units; sugars greater than 349,(9) units Blood Sugar Management Days 30 Ref 0 ML Insulin Detemir Inj (Levemir Inj) 1,000 unit/ 10 ML Vial 35 UNITS SQ HS diabetes Days 30 Ref 0 INJECTION Insulin Human Regular Inj (Novolin R Inj) 1,000 Unit/10 Ml Vial 3 UNITS SQ TIDAC diabetes Days 30 Ref 0 INJECTION Lisinopril 10 mg (Lisinopril 10 mg) 10 Mg Tab 1 TAB PO DAILY Blood Pressure Management Days 30 TAB Metformin (Glucophage) 500 Mg Tab 250 MG PO BIDPC diabetes Days 30 Ref 0 TAB Quetiapine (Seroquel) 100 Mg Tab 150 MG PO QID Mental Health Days 15 Ref 1 TAB Agueda Wilkes MD Mar 23, 2016 09:33
--- NOTE | 2016-03-23 14:10 | PD.CARD.PN ---
Subjective Subjective Remarks Feels well today, up and ambulating Objective Medications Current Medications Medications (Trade) Dose Ordered Sig/Alex Route Start Time Stop Time Status Last Admin (NS Flush) 2 ml UNSCH PRN IVF 03/20/16 12:30 03/23/16 08:31 (D50w (Vial) Inj) 25 ml UNSCH PRN IV PUSH 03/20/16 16:00 (Glucagon Inj) 1 mg UNSCH PRN OTHER 03/20/16 16:00 (Ecotrin Ec) 81 mg DAILY PO 03/21/16 09:00 03/23/16 08:31 (Lipitor) 20 mg DAILY PO 03/21/16 09:00 03/23/16 08:31 (Levemir Inj) 35 units HS SQ 03/20/16 21:00 03/22/16 21:47 (Prinivil) 10 mg DAILY PO 03/21/16 09:00 03/23/16 08:47 (Morphine Inj) 2 mg Q4HR PRN IV PUSH 03/20/16 16:30 03/23/16 12:45 (Zofran Inj) 4 mg Q6H PRN IV 03/21/16 05:15 03/21/16 05:32 (Norvasc) 5 mg DAILY PO 03/23/16 09:00 03/23/16 08:47 Vital Signs / I&O Vital Signs Date Time Temp Pulse Resp B/P Pulse Ox O2 Delivery O2 Flow Rate FiO2 03/23/16 12:50 16 03/23/16 11:43 96.3 76 18 143/77 98 03/23/16 09:16 96.4 65 18 159/85 94 03/23/16 04:40 98.4 72 20 136/72 97 03/23/16 01:34 97.8 74 20 141/80 98 03/22/16 20:15 97.8 80 20 149/80 96 03/22/16 15:35 98.1 70 18 138/75 97 Physical Exam GENERAL: NAD, AAOx3 SKIN: Warm and dry. HEAD: Atraumatic. Normocephalic. EYES: Pupils equal and round. No scleral icterus. No injection or drainage. ENT: No nasal bleeding or discharge. Mucous membranes pink and moist. NECK: Trachea midline. No JVD. CARDIOVASCULAR: Regular rate and rhythm. RESPIRATORY: No accessory muscle use. Clear to auscultation. Breath sounds equal bilaterally. GASTROINTESTINAL: Abdomen soft, non-tender, nondistended. Hepatic and splenic margins not palpable. MUSCULOSKELETAL: Extremities without clubbing, cyanosis, or edema. No obvious deformities. NEUROLOGICAL: Awake and alert. No obvious cranial nerve deficits. Motor grossly within normal limits. Five out of 5 muscle strength in the arms and legs. Normal speech. PSYCHIATRIC: Appropriate mood and affect; insight and judgment normal. Assessment and Plan Problem List: (1) Chest pain (2) Substance abuse (3) Tobacco abuse (4) DM (diabetes mellitus) (5) Hyperlipidemia (6) Hypertension (7) CAD (coronary artery disease) (8) Cocaine abuse (9) Suicidal ideation (10) Noncompliance with medication regimen Assessment and Plan 1) Follow up on abnormal stress test, continue on medical management 2) Add Norvasc for better blood pressure control and anti-anginal 3) Tobacco cessation 4) Cocaine cessation Problem Qualifiers (1) Chest pain: Qualified Code: R07.9 - Chest pain, unspecified type Leonidas Ramirez DO Mar 23, 2016 14:10
--- NOTE | 2016-03-23 16:04 | HHI.PYPN ---
Subjective Remarks Patient seen for reevaluation he endorses chronic auditory hallucination, unintelligible voices "but not telling me basically anything", he denies depression, SI, HI, VHA. He has been taking Seroquel as prescribed and is planning to continue FU in [facility]. Review of Systems Other no significant changes since 03/21/2016 Objective Alert: Yes [place]: Person, Place, Date, Situation Mood: Calm Affect: Euthymic Memory Intact: Immediate, Recent, Remote Hallucinations: Other (none) Delusions: No Delusion Type: Other (none) Suicidal: Ideation (denies) Homicidal: Ideation (deneis) Insight/Judgement fair Vitals/IOs Vital Signs Date Time Temp Pulse Resp B/P Pulse Ox O2 Delivery O2 Flow Rate FiO2 03/23/16 12:50 16 03/23/16 11:43 96.3 76 143/77 98 03/20/16 18:44 Room Air Assessment & Plan Problem List: (1) Drug-induced mood disorder Assessment & Plan: The patient is psychiatrically stable to be discharge back to the community and continue outpatient psychiatric care in [facility]. He denies SI/ HI/VAH. ICD Code: F19.94 Assessment & Plan Estimated LOS: days Justification for Cont. Inpt. does not meet criteria for psychiatric admission Lambert Dalton MD Mar 23, 2016 16:04
[2016-03-23] MEDS: INSULIN DETEMIR 100 UNITS/ML VIAL SQ SCH (21:19)
--- NOTE | 2016-03-23 22:30 | EKG ---
Date Performed: 03/20/2016 Time Performed: 23:28:18 PTAGE: 51 years EKG: Sinus rhythm NONSPECIFIC ST & T-WAVE ABNORMALITY BORDERLINE ECG PREVIOUS TRACING : 03/20/2016 11.35 Compared to prior tracing no significant change DOCTOR: Leonidas Ramirez Interpretating Date/Time 03/23/2016 22:29:50
[2016-03-24 04:47] VITALS: BP 131/83; PULSE 68; RESP 20; TEMP 97; O2SAT 97
[2016-03-24] MEDS: INSULIN ASPART SUPPLEMENTAL SCALE SQ SCH (06:35)
--- NOTE | 2016-03-24 07:20 | HHI.PR ---
Subjective Remarks resting comfortably with no distress. no new complaints. Objective Vitals Vital Signs Date Time Temp Pulse Resp B/P Pulse Ox O2 Delivery O2 Flow Rate FiO2 03/24/16 04:47 97.0 68 20 131/83 97 03/23/16 23:52 97.8 78 20 147/78 97 03/23/16 19:45 97.4 75 20 141/88 98 03/23/16 17:42 96.3 74 18 156/84 98 03/23/16 16:46 16 03/23/16 11:43 96.3 76 18 143/77 98 03/23/16 09:16 96.4 65 18 159/85 94 Result Diagram: 03/20/16 1157 03/20/16 1157 Imaging Last Impressions Myocardial Perfusion Scan Nuc Med 03/21/16 0000 Signed Impressions: Service Date/Time: Monday, March 21, 2016 14:07 - CONCLUSION: 1. Possible mild ischemia in the LAD territory at the upper septum and anterior wall of the mid ventricle. 2. Mildly reduced ejection fraction of 44%%. RISK CATEGORY: Intermediate (1-3%% Annual Mortality Rate) Dhruv Orlando MD Chest X-Ray 03/20/16 1122 Signed Impressions: Service Date/Time: Sunday, March 20, 2016 11:58 - CONCLUSION: No acute disease. Thiago Ayers MD FACR Objective Remarks GENERAL: This is a well-nourished, well-developed patient, in no apparent distress. CARDIOVASCULAR: Regular rate and regular rhythm without murmurs, gallops, or rubs. RESPIRATORY: Clear to auscultation. Breath sounds equal bilaterally. No wheezes , rales, or rhonchi. GASTROINTESTINAL: Abdomen soft, non-tender, nondistended. Normal, active bowel sounds MUSCULOSKELETAL: Extremities without clubbing, cyanosis, or edema. NEURO: Alert & Oriented x4 to person, place, time, situation. Moves all ext x4 Procedures none Medications and IVs Current Medications Aspirin (Aspirin Chew) 243 mg ONCE ONCE PO Last administered on 03/20/16 12: 49; Start 03/20/16 at 12:30; Stop 03/20/16 at 12:31; Status DC IV Flush (NS Flush) 2 ml UNSCH PRN IVF FLUSH AFTER USING IV ACCESS Last administered on 03/23/16 16:38; Start 03/20/16 at 12:30 Nitroglycerin 0.4 mg 0.4 mg Q5M SL Last administered on 03/20/16 12:59; Start 03/20/16 at 12:30; Stop 03/20/16 at 12:41; Status DC Sodium Chloride (NS 500 ml Inj) 500 ml @ 500 mls/hr ONCE ONCE IV Last administered on 03/20/16 12:49; Start 03/20/16 at 12:30; Stop 03/20/16 at 13:29 ; Status DC Dextrose (D50w (Vial) Inj) 25 ml UNSCH PRN IV PUSH HYPOGLYCEMIA-SEE COMMENTS; Start 03/20/16 at 16:00 Glucagon (Glucagon Inj) 1 mg UNSCH PRN OTHER HYPOGLYCEMIA-SEE COMMENTS; Start 03/20/16 at 16:00 Insulin Aspart (NovoLOG SUPPLEMENTAL SCALE) 1 ACHS SLIDING SCALE SQ Last administered on 03/23/16 16:45; Start 03/20/16 at 16:00 Aspirin (Ecotrin Ec) 81 mg DAILY PO Last administered on 03/23/16 08:31; Start 03/21/16 at 09:00 Atorvastatin Calcium (Lipitor) 20 mg DAILY PO Last administered on 03/23/16 08 :31; Start 03/21/16 at 09:00 Insulin Detemir (Levemir Inj) 35 units HS SQ Last administered on 03/23/16 21: 19; Start 03/20/16 at 21:00 Lisinopril (Prinivil) 10 mg DAILY PO Last administered on 03/23/16 08:47; Start 03/21/16 at 09:00 Nitroglycerin (Nitroglycerin 2% Oint) 0.5 inch ONCE ONCE TOPICAL Last administered on 03/20/16 16:30; Start 03/20/16 at 16:30; Stop 03/20/16 at 16:57 ; Status DC Morphine Sulfate (Morphine Inj) 2 mg Q4HR PRN IV PUSH CHEST PAIN Last administered on 03/23/16 21:19; Start 03/20/16 at 16:30 Ondansetron HCl 4 mg 4 mg Q6H PRN IV NAUSEA OR VOMITING Last administered on 05:32; Start 03/21/16 at 05:15 Sodium Chloride (NS 500 ml Inj) 500 ml @ 50 mls/hr Q10H ONCE IV Last administered on 03/21/16 09:25; Start 03/21/16 at 08:30; Stop 03/21/16 at 18:29 ; Status DC Regadenoson (Lexiscan Inj) 0.4 mg STK-MED ONCE .ROUTE Last administered on 03/21 14:34; Start 03/21/16 at 14:34; Stop 03/21/16 at 14:35; Status DC Amlodipine Besylate (Norvasc) 5 mg DAILY PO Last administered on 03/23/16 08: 47; Start 03/23/16 at 09:00 A/P Assessment and Plan - chest pain with recent cocaine use/ noncompliant with meds will continue aspirin and statin- cardiac enzymes negative. stress test with possible ischemia in LAD territory- consulted cardiology; recommended medical treatment. -depression with suicidal thoughts and auditory hallucinations- psych reconsulted and cleared the patient for discharge. -hypertension; resumed lisinopril-norvasc was added- -diabetes; accu-check with SSI- resumed insulin regimen Discharge Planning dc home today. see med list. f/u; pcp and psych. d/w the patient. Agueda Wilkes MD Mar 24, 2016 07:20
[2016-03-24 08:00] VITALS: BP 140/81; PULSE 77; RESP 16; TEMP 97.6; O2SAT 98
[2016-03-24] MEDS: ASPIRIN EC 81 MG TABEC PO SCH (08:27)
[2016-03-24] MEDS: amLODIPine BESYLATE 5 MG TAB PO SCH (08:27)
[2016-03-24] MEDS: LISINOPRIL 10 MG TAB PO SCH (08:27)
[2016-03-24] MEDS: ATORVASTATIN 20 MG TAB PO SCH (08:27)
== END 2016-03-24 09:41 | disposition home or self-care (01) ==
LOC: NETRI 11:10 → NEDA 15:52 → NEPGCP 19:50
PROVIDERS: ADMIT Internal Medicine; ATTEND Internal Medicine
DX: R07.9 Chest pain, unspecified (principal); F14.10 Cocaine abuse, uncomplicated; I25.10 Atherosclerotic heart disease of native coronary artery without angina pectoris; I10 Essential (primary) hypertension; E78.5 Hyperlipidemia, unspecified; E10.9 Type 1 diabetes mellitus without complications; E78.00 Pure hypercholesterolemia, unspecified; F19.94 Other psychoactive substance use, unspecified with psychoactive substance-induced mood disorder; F31.9 Bipolar disorder, unspecified; R45.851 Suicidal ideations; K21.9 Gastro-esophageal reflux disease without esophagitis; I25.2 Old myocardial infarction; F17.210 Nicotine dependence, cigarettes, uncomplicated; Z79.4 Long term (current) use of insulin; Z95.1 Presence of aortocoronary bypass graft; Z95.5 Presence of coronary angioplasty implant and graft; Z91.14 Patient's other noncompliance with medication regimen
CPT/HCPCS: 71010; 78452; 80048; 82550; 82948; 83735; 84484; 85025; 85610; 85730; 93005; 93017; 99285; A9502; G0378; J1815; J2270; J2405; J2785; J7040

== ENCOUNTER 2016-04-02 22:59 | Emergency (ER) | payer OTHER ==
[~2016-04-02] VITALS: Ht 170.2 cm; Wt 70.0 kg
[~2016-04-02 22:59] MED LIST changes: +AMLO5 PO
[2016-04-02 23:01] VITALS: BP 179/89; PULSE 83; RESP 16; TEMP 98.3; O2SAT 97
[2016-04-03 00:20] LABS: AUTOMATED NEUTROPHIL # 4.9 TH/MM3 (1.8-7.7); BASOPHIL # 0.1 TH/MM3 (0-0.2); BASOPHIL % 1.4 % (0.0-2.0); EOSINOPHIL # 0.1 TH/MM3 (0-0.4); EOSINOPHIL % 0.9 % (0.0-4.0); HEMATOCRIT 33.9 % (39.0-51.0); HEMO FLAGS DIFF FINAL; LYMPH % 27.9 % (9.0-44.0); LYMPHOCYTE # 2.2 TH/MM3 (1.0-4.8); MEAN CELL VOLUME 90.7 FL (80.0-100.0); MEAN CORPUSCULAR HEMOGLOBIN 31.3 PG (27.0-34.0); MEAN CORPUSCULAR HGB CONC 34.5 % (32.0-36.0); MONO % 6.4 % (0.0-8.0); NEUT % 63.4 % (16.0-70.0); PLATELET COUNT 299 TH/MM3 (150-450); RED BLOOD COUNT 3.73 MIL/MM3 (4.50-5.90); RED CELL DISTRIBUTION WIDTH 14.3 % (11.6-17.2); WHITE BLOOD COUNT 7.8 TH/MM3 (4.0-11.0)
[2016-04-03 00:32] LABS: ANION GAP 8 MEQ/L (5-15); BICARBONATE 24.7 MEQ/L (21.0-32.0); BLOOD UREA NITROGEN 9 MG/DL (7-18); CHLORIDE 108 MEQ/L (98-107); GLOMERULAR FILTRATION RATE 83 ML/MIN (>89); POTASSIUM 3.7 MEQ/L (3.5-5.1); SODIUM (NA) 141 MEQ/L (136-145)
[2016-04-03 00:45] LABS: CREATINE KINASE 74 U/L (39-308)
--- NOTE | 2016-04-03 00:50 | RADRPT ---
EXAM DATE/TIME: 04/03/2016 00:18 [facility] COMPARISON: CHEST SINGLE AP, November 07, 2015, 15:04. CHEST SINGLE AP, March 20, 2016, 11:58. INDICATIONS : Chest pain. MEDICAL HISTORY : Congestive heart failure. Diabetes mellitus type I. SURGICAL HISTORY : CABG. Two cardiac stents. ENCOUNTER: Initial ACUITY: 3 days PAIN SCORE: 6/10 LOCATION: chest FINDINGS: Portable AP view of the chest demonstrates a normal-sized cardiac silhouette in this patient post med veronica sternotomy. There is chronic blunting of the left costophrenic angle with linear opacity at the l eft lung base. No pneumothorax is visualized. Bones and soft tissues demonstrate no acute finding. CONCLUSION: Stable chest x-ray with slight blunting of the left costophrenic sulcus that may represent trace pleu ral fluid or pleural scarring. There is a linear opacity at the left lung base that represents either scar or subsegmental atelectasis or parenchymal scar. Dhruv Brian MD on April 03, 2016 at 0:47 Board Certified Radiologist. This report was verified electronically.
[2016-04-03 00:59] VITALS: BP 184/89; PULSE 66; RESP 20; O2SAT 98
--- NOTE | 2016-04-03 01:31 | PD ---
HPI Chief Complaint: Chest Pain Time Seen by Provider: 00:59 Travel History International Travel<30 days: No Contact w/Intl Traveler<30days: No Traveled to known affect area: No History of Present Illness HPI The patient is well-known to our hospital. He is 51 years old and smokes half pack of cigarettes daily and has abused cocaine for at least 20 years. Additional history include CAD, CABG, HLD, HTN, psychiatric disease, and DM2. Unfortunately he has developed ischemia with an abnormal NM scan. He abused cocaine within last 2 days. Severity moderate. Worse with exertion. Intermittent compliance with medications reported. PFSH Past Medical History Hx Anticoagulant Therapy: Yes Arthritis: No Asthma: No Autoimmune Disease: No Blood Disorders: No Bipolar Disorder: Yes Anxiety: Yes Depression: Yes Heart Rhythm Problems: No Cancer: No Cardiac Catheterization: Yes Cardiovascular Problems: Yes (IA, CABG X3, HTN) High Cholesterol: Yes Chemotherapy: Yes Chest Pain: Yes Congestive Heart Failure: No COPD: Yes Cerebrovascular Accident: Yes Diabetes: Yes Patient Takes Glucophage: Yes (METFORMIN 03/02/16 0900 500MG) Diminished Hearing: No Endocrine: Yes Gastrointestinal Disorders: Yes GERD: Yes Glaucoma: No Genitourinary: No Headaches: No Hepatitis: No Hiatal Hernia: No Hypertension: Yes Immune Disorder: No Implanted Vascular Access Dvce: No Kidney Stones: No Musculoskeletal: No Neurologic: No Psychiatric: Yes (Hx of treatment for depression) Reproductive: No Respiratory: Yes Migraines: No Myocardial Infarction: Yes (2005) Radiation Therapy: No Renal Failure: No Seizures: Yes (seizure 01/10/16, says in coma 11 days) Sickle Cell Disease: No Sleep Apnea: No Thyroid Disease: No Ulcer: No Tetanus Vaccination: < 5 Years Influenza Vaccination: No PNEUMOCCOCAL Vaccine (Year): 1 Past Surgical History Abdominal Surgery: No AICD: No Appendectomy: No Arteriovenous Shunt: No Cardiac Surgery: Yes (corobnary by-pass) Cholecystectomy: No Coronary Artery Bypass Graft: Yes Coronary Stent: Yes (X2) Ear Surgery: No Endocrine Surgery: No Eye Surgery: No Genitourinary Surgery: No Gynecologic Surgery: No Insulin Pump: No Joint Replacement: Yes (metal in right wrist) Neurologic Surgery: No Oral Surgery: No Pacemaker: No Thoracic Surgery: No Other Surgery: Yes (CABG,ORTHO RT WRIST, STENT,) Social History Alcohol Use: Yes (socially) Tobacco Use: Yes (0.5 ppd) Substance Use: Yes (cocaine - 2 x week) Allergies-Medications (Allergen,Severity, Reaction): Coded Allergies: *MDRO Multi-Drug Resistant Organism (Verified Adverse Reaction, Unknown, ) MRSA (hand wound) 2010; MRSA PCR Screen POSITIVE 02/11/16 Reported Meds & Prescriptions Reported Meds & Active Scripts Active Norvasc (Amlodipine Besylate) 5 Mg Tab 5 Mg PO DAILY 30 Days Lipitor (Atorvastatin Calcium) 20 Mg Tab 20 Mg PO DAILY 15 Days Seroquel (Quetiapine Fumarate) 100 Mg Tab 150 Mg PO QID 15 Days Glucophage (Metformin HCl) 500 Mg Tab 250 Mg PO BIDPC 30 Days Novolog Inj (Insulin Aspart) 1,000 Unit/10 Ml Vial 1-9 Units SQ ACHS 30 Days Max dose at bedtime:( )units; sugars less than 70,(0)units; sugars 150-199,(1) unit; sugars 200-249,(3) units; sugars 250-299,(5) units; sugars 300-349,(7) units; sugars greater than 349,(9) units Novolin R Inj (Insulin Human Regular) 1,000 Unit/10 Ml Vial 3 Units SQ TIDAC 30 Days Levemir Inj (Insulin Detemir) 1,000 unit/ 10 ML Vial 35 Units SQ HS 30 Days Reported Aspirin 81 (Aspirin) 81 Mg Tabdr 81 Mg PO DAILY Lisinopril 10 Mg Tab Unknown Dose PO DAILY Review of Systems Except as stated in HPI: all other systems reviewed are Neg General / Constitutional: No: Fever, Chills Cardiovascular: Positive: Chest Pain or Discomfort Physical Exam Narrative GENERAL: 51 yo M, WNWD, NAD SKIN: Warm and dry. HEAD: Atraumatic. Normocephalic. EYES: Pupils equal and round. No scleral icterus. No injection or drainage. ENT: No nasal bleeding or discharge. Mucous membranes pink and moist. NECK: Trachea midline. No JVD. CARDIOVASCULAR: Regular rate and rhythm. RESPIRATORY: No accessory muscle use. Clear to auscultation. Breath sounds equal bilaterally. GASTROINTESTINAL: Abdomen soft, non-tender, nondistended. Hepatic and splenic margins not palpable. MUSCULOSKELETAL: Extremities without clubbing, cyanosis, or edema. No obvious deformities. NEUROLOGICAL: Awake and alert. No obvious cranial nerve deficits. Motor grossly within normal limits. Five out of 5 muscle strength in the arms and legs. Normal speech. PSYCHIATRIC: Appropriate mood and affect; insight and judgment normal. Data Data Last Documented VS Vital Signs Date Time Temp Pulse Resp B/P Pulse Ox O2 Delivery O2 Flow Rate FiO2 04/03/16 00:59 69 20 99 Room Air 04/03/16 00:59 184/89 04/02/16 23:01 98.3 Orders Electrocardiogram (04/02/16 23:38) Complete Blood Count With Diff (04/02/16 23:38) Basic Metabolic Panel (Bmp) (04/02/16 23:38) Ckmb (Isoenzyme) Profile (04/02/16 23:38) Troponin I (04/02/16 23:38) Chest, Single Ap (04/02/16 23:38) Iv Access Insert/Monitor (04/02/16 23:38) Ecg Monitoring (04/02/16 23:38) Oxygen Administration (04/02/16 23:38) Oximetry (04/02/16 23:38) Labs Laboratory Tests Test 04/02/16 23:55 White Blood Count 7.8 TH/MM3 Red Blood Count 3.73 MIL/MM3 Hemoglobin 11.7 GM/DL Hematocrit 33.9 % Mean Corpuscular Volume 90.7 FL Mean Corpuscular Hemoglobin 31.3 PG Mean Corpuscular Hemoglobin 34.5 % Concent Red Cell Distribution Width 14.3 % Platelet Count 299 TH/MM3 Mean Platelet Volume 7.6 FL Neutrophils (%) (Auto) 63.4 % Lymphocytes (%) (Auto) 27.9 % Monocytes (%) (Auto) 6.4 % Eosinophils (%) (Auto) 0.9 % Basophils (%) (Auto) 1.4 % Neutrophils # (Auto) 4.9 TH/MM3 Lymphocytes # (Auto) 2.2 TH/MM3 Monocytes # (Auto) 0.5 TH/MM3 Eosinophils # (Auto) 0.1 TH/MM3 Basophils # (Auto) 0.1 TH/MM3 CBC Comment DIFF FINAL Differential Comment Sodium Level 141 MEQ/L Potassium Level 3.7 MEQ/L Chloride Level 108 MEQ/L Carbon Dioxide Level 24.7 MEQ/L Anion Gap 8 MEQ/L Blood Urea Nitrogen 9 MG/DL Creatinine 0.96 MG/DL Estimat Glomerular Filtration 83 ML/MIN Rate Random Glucose 111 MG/DL Calcium Level 8.5 MG/DL Total Creatine Kinase 74 U/L Troponin I LESS THAN 0.02 NG/ML MDM Medical Decision Making Medical Screen Exam Complete: Yes Emergency Medical Condition: Yes Differential Diagnosis NSTEMI, unstable angina, coronary vasospasm, PE, PTX, aortic dissection, pericarditis, myocarditis, endocarditis, PNA, esophageal disease, aneurysm, musculoskeletal etiologies, anxiety, cocaine/sympathomimetic abuse Narrative Course EKG is sinus with a rate of about 55 normal axis intervals w/o ischemic injury pattern at Last 24 hours Impressions Chest X-Ray 04/02/16 7718 Signed Impressions: Service Date/Time: Sunday, April 03, 2016 00:18 - CONCLUSION: Stable chest x-ray with slight blunting of the left costophrenic sulcus that may represent trace pleural fluid or pleural scarring. There is a linear opacity at the left lung base that represents either scar or subsegmental atelectasis or parenchymal scar. Dhruv Brian MD CBC & BMP Diagram 04/02/16 23:55 Troponin is undetectable Patient was counseled at length regarding lifestyle modification including drug/ tobacco cessation and medication compliance. Pt asked if he could spend the night in the hospital as he has no place to go. Diagnosis Primary Impression: Chest pain Qualified Code: R07.9 - Chest pain, unspecified type Additional Impressions: Cocaine abuse CAD (coronary artery disease) Qualified Code: I25.10 - Coronary artery disease, angina presence unspecified , unspecified vessel or lesion type, unspecified whether agdaagux or transplanted heart Referrals: [facility] 2 days Additional Instructions: You have a choice when it comes to health care, and we are glad that you chose [facility]. Hopefully, we have met your expectations on today's visit. You are welcome to return to [facility] at any time, as we are committed to meeting the health care needs of our community. Med/Other Pt SpecificInfo: No Change to Meds Disposition: DISCHARGE HOME Condition: Dar Campbell MD Apr 03, 2016 01:31
[2016-04-03] MEDS ORDERED: LISI10TA3 PO (01:35)
[2016-04-03] MEDS ORDERED: ASPI-110 PO (01:35)
--- NOTE | 2016-04-03 13:29 | EKG ---
Date Performed: 04/02/2016 Time Performed: 23:47:16 PTAGE: 51 years EKG: Sinus rhythm NORMAL ECG PREVIOUS TRACING : 03/20/2016 23.28 Since previous tracing, no significant change noted DOCTOR: Sandy Thacker Interpretating Date/Time 04/03/2016 13:28:40
== END 2016-04-03 01:58 | disposition home or self-care (01) ==
LOC: NEPC 22:59
DX: R07.9 Chest pain, unspecified (principal); F14.20 Cocaine dependence, uncomplicated; I25.10 Atherosclerotic heart disease of native coronary artery without angina pectoris; E78.00 Pure hypercholesterolemia, unspecified; J44.9 Chronic obstructive pulmonary disease, unspecified; Z86.73 Personal history of transient ischemic attack (TIA), and cerebral infarction without residual deficits; E11.9 Type 2 diabetes mellitus without complications; I10 Essential (primary) hypertension; F17.210 Nicotine dependence, cigarettes, uncomplicated; Z79.4 Long term (current) use of insulin; Z95.1 Presence of aortocoronary bypass graft
CPT/HCPCS: 71010; 80048; 82550; 84484; 85025; 93005